=== PATIENT | male | born 1995 ===

== ENCOUNTER 2019-11-28 15:26 | Outpatient (REF) | payer OTHER, SELFPAY ==
[2019-12-03 03:55] LABS: SARS-CoV-2 RNA Undetected (Undetected); SARS-CoV-2 Specimen Source Nasopharynx
== END 2019-11-28 15:46 ==
LOC: NCHCN 15:26
PROVIDERS: PCP Internal Medicine; Visit Provider Physician Assistant
DX: Z20.828 Contact with and (suspected) exposure to other viral communicable diseases (principal)
CPT/HCPCS: U0003

== ENCOUNTER 2020-05-08 10:12 | Outpatient (REF) | payer OTHER, SELFPAY ==
[2020-05-10 13:07] LABS: COVID-19 RT-PCR UVMMC Result Negative (Negative)
== END 2020-05-08 10:13 | disposition home or self-care (01) ==
LOC: NCHCN 10:12
PROVIDERS: PCP Internal Medicine; Visit Provider Internal Medicine
DX: Z20.828 Contact with and (suspected) exposure to other viral communicable diseases (principal)
CPT/HCPCS: U0003